=== PATIENT | male | born 1960 | race Hispanic/Latino ===

== ENCOUNTER 2018-05-08 12:02 | Observation (INO) | payer MEDICAID ==
--- NOTE | 2018-05-08 13:30 | C.PDOC ---
History Of Present Illness 58 y/o male with a PMHx of peripheral vascular disease (PAD), now presents complaining of pain to the left leg for the past 3-4 weeks. He reports pain is progressively worse. Pain is now rated 8/10, and described as sharp. He denies any rash, fever, recent travel, leg swelling, or other associated symptoms. Patient reports hx of prior surgery on the left leg but cannot recall specifics. Time Seen by Provider: 05/08/18 12:24 Chief Complaint (Nursing): Lower Extremity Problem/Injury History Per: Patient History/Exam Limitations: no limitations Onset/Duration Of Symptoms: Days Current Symptoms Are (Timing): Still Present Severity: Severe Pain Scale Rating Of: 8 Past Medical History Reviewed: Historical Data, Nursing Documentation, Vital Signs Vital Signs: Last Vital Signs Temp 98 F 05/08/18 12:19 Pulse 86 05/08/18 12:19 Resp 16 05/08/18 12:19 BP 124/81 05/08/18 12:19 Pulse Ox 98 05/08/18 12:19 - Medical History PMH: COPD, HTN Other PMH: Peripheral Arterial Disease Other Surgeries: Left leg vascular surgery Family History: States: No Known Family Hx - Social History Hx Alcohol Use: Yes Hx Substance Use: No - Immunization History Hx Tetanus Toxoid Vaccination: No Hx Influenza Vaccination: No Hx Pneumococcal Vaccination: No Review Of Systems Except As Marked, All Systems Reviewed And Found Negative. Constitutional: Negative for: Fever, Chills Cardiovascular: Negative for: Chest Pain Respiratory: Negative for: Shortness of Breath Musculoskeletal: Positive for: Leg Pain Skin: Negative for: Rash Neurological: Negative for: Weakness, Numbness Physical Exam - Physical Exam Appears: Non-toxic, No Acute Distress Skin: Warm, Other (Chronic venous stasis changes to the lower extremities) Eye(s): bilateral: Normal Inspection Chest: Symmetrical Respiratory: No Accessory Muscle Use, Other (Normal inspiratory effort, Speaking in full sentences) Extremity: Normal ROM, No Deformity, No Swelling Pulses: Left Dorsalis Pedis: Decreased (1+), Right Dorsalis Pedis: Decreased (1+) Neurological/Psych: Oriented x3, Normal Motor, Normal Sensation ED Course And Treatment - Laboratory Results Result Diagrams: 05/08/18 16:51 05/08/18 16:51 O2 Sat by Pulse Oximetry: 98 (RA) Pulse Ox Interpretation: Normal Medical Decision Making Medical Decision Making: Impression: Severe left leg pain, hx of PAD/PVD Plan: - Arterial Doppler ordered - Patient given 324 mg PO Aspirin Of note patient also reports hx of alcohol abuse and states he needs Librium. Will give 50 mg PO Librium. Doppler shows right leg moderate YAKOV, 0.58 on the right, 1.08 on the left. No risk on the left. Paged surgical specialist, will evaluate patient in the ED. 16:35 residential real estate sales manager at bedside, evaluating patient, will speak to Dr. Lyons. 17:05 Discussed with surgical specialist, surgery wants a CTA and may take patient to t he OR tomorrow. Requests patient be admitted to medical service. 17:[address] Kelley, will admit to service. Disposition - Disposition Forms: [employer] (Uz[place]) - PA / PALLIATIVE CARE SPECIALIST / Resident Statement MD/DO has reviewed & agrees with the documentation as recorded. - Scribe Statement The provider has reviewed the documentation as recorded by the Patrick Bradford All medical record entries made by the Patrick were at my direction and personally dictated by me. I have reviewed the chart and agree that the record accurately reflects my personal performance of the history, physical exam, medical decision making, and the department course for this patient. I have also personally directed, reviewed, and agree with the discharge instructions and disposition.
--- NOTE | 2018-05-08 16:51 | CP.PCM.CON ---
History of Present Illness - History of Present Illness History of Present Illness: Vascular surgery consult for Dr. Lyons Patient is a 58 year old male with past medical history of CAD, triple vessel CABG, PAD, COPD and HTN who presented to the ED with pain in lower legs bilaterally worse on the left. Patient stated that he has had the pain for 24 hours. He reports sudden onset. he describes the pain as sharp and constant. Patient also reports history of angiogram years ago in [place] where they did some intervention. Patient admits to rest pain and pain is worse with movement. He denies any wounds or impaired healing. Denies fever, chills, SOB, chest pain, nausea, vomiting, diarrhea, constipation and dysuria. PMH: CAD, PAD, COPD and HTN PSH: CABG, Left lower extremity vascular surgery Allergies: Not known Meds: See med list FMH: Unknown SocHx: Admits to daily tobacco and alcohol use. denies illicit drug use. Patient is legally blind. Review of Systems - Review of Systems All systems: reviewed and no additional remarkable complaints except (see HPI) Past Patient History - Past Social History Smoking Status: Heavy Smoker > 10 Cigarettes Daily - CARDIAC Hx Hypertension: Yes - PULMONARY Hx Chronic Obstructive Pulmonary Disease (COPD): Yes - PSYCHIATRIC Hx Substance Use: No Meds Allergies/Adverse Reactions: Allergies Allergy/AdvReac Type Severity Reaction Status Date / Time No Known Allergies Allergy Verified 05/08/18 12:22 Physical Exam - Constitutional Appears: Well, Non-toxic, No Acute Distress - Head Exam Head Exam: ATRAUMATIC, NORMOCEPHALIC - Eye Exam Eye Exam: PERRL Additional comments: Patient has difficulty seeing out of right eye and is unable to see out of his left eye. - ENT Exam ENT Exam: Mucous Membranes Moist - Respiratory Exam Respiratory Exam: NORMAL BREATHING PATTERN. absent: Accessory Muscle Use, Respiratory Distress - Cardiovascular Exam Cardiovascular Exam: REGULAR RHYTHM, +S1, +S2 - GI/Abdominal Exam GI & Abdominal Exam: Normal Bowel Sounds, Soft. absent: Distended, Guarding, Rebound, Rigid, Tenderness - Extremities Exam Additional comments: doppler signals present in DP/AT/PT/POP bilaterally TTP in bilateral feet delayed cap refill in bilateral feet - Back Exam Back exam: absent: CVA tenderness (L), CVA tenderness (R) - Neurological Exam Neurological exam: Alert, Oriented x3 - Psychiatric Exam Psychiatric exam: Normal Affect, Normal Mood - Skin Skin Exam: Intact Additional comments: bilaterally feet with redness, no skin breakdown Results - Vital Signs Recent Vital Signs: Last Vital Signs Temp 98 F 05/08/18 12:19 Pulse 86 05/08/18 12:19 Resp 16 05/08/18 12:19 BP 124/81 05/08/18 12:19 Pulse Ox 98 05/08/18 16:43 - Labs Result Diagrams: 05/08/18 16:51 05/08/18 16:51 Assessment & Plan - Assessment and Plan (Free Text) Assessment: 58 year old with past medical history of CAD, PAD, COPD and HTN who presented to the ED with pain in lower legs bilaterally Plan: -[place] 0.5 in RLE, 1.04 in LLE -f/u CTA -f/u EKG -Discussed with Dr. Eloy Frederick PGY2 - Date & Time Date: 05/08/18 Time: 16:45
[2018-05-08 16:57] LABS: BASO # 0.1 K/uL (0.0-0.2); BASO % 0.8 % (0.0-2.0); EOS # 0.3 K/uL (0.0-0.7); EOS % 4.1 % (0.0-4.0); HEMOGLOBIN 16.5 g/dL (12.0-18.0); LYMPH # 1.8 K/uL (1.0-4.3); LYMPH % 23.7 % (20.0-40.0); MEAN CELL VOLUME 93.4 fL (80.0-94.0); MEAN CORPUSCULAR HEMOGLOBIN 30.6 pg (27.0-31.0); MEAN CORPUSCULAR HGB CONC 32.8 g/dL (33.0-37.0); MEAN PLATELET VOLUME 7.7 fL (7.2-11.7); MONO % 13.5 % (0.0-10.0); NEUT # 4.4 K/uL (1.8-7.0); NEUT % 57.9 % (50.0-75.0); RBC 5.38 Mil/uL (4.40-5.90); RED CELL DISTRIBUTION WIDTH 13.2 % (11.5-14.5); WHITE BLOOD COUNT 7.7 K/uL (4.8-10.8)
[2018-05-08 17:07] LABS: ALB/GLOB RATIO 1.1 (1.0-2.1); ALBUMIN 4.7 g/dL (3.5-5.0); ALT/SGPT 18 U/L (21-72); AST/SGOT 28 U/L (17-59); BLOOD UREA NITROGEN 13 mg/dL (9-20); GFR NON-AFRICAN AMERICAN > 60
[2018-05-08 17:09] LABS: INR 1.1; PROTHROMBIN TIME 12.5 SECONDS (9.7-12.2)
[2018-05-08 20:29] VITALS: RESP 20
[2018-05-08] MEDS: Folic Acid 1 MG, Thiamine 100 MG, Multivitamin (MVI) 10 ML in Dextrose 5% In Water 1,00... IV SCH (21:58)
[2018-05-09] MEDS ORDERED: Iodixanol 320 mg/ml 150 ml Bottle IV ONE (07:12)
--- NOTE | 2018-05-09 07:33 | VASCLAB ---
Date of service: 05/08/2018 STUDY DESCRIPTION: Lower Extremity Arterial Exam (PVR). HISTORY: hx of PAD, severe pain to Lt lower leg PRIORS: None. TECHNIQUE: Pulse volume recording waveforms and segmental pressures of bilateral lower extremities at multiple levels were obtained. Ankle Brachial Indices (ABIs) were calculated. Report prepared by LANCE Davis, RVT RIGHT LOWER EXTREMITY: * Brachial artery: Pressure - 112 mmHg. * High thigh: Pressure - mmHg: Ratio - : PVR waveform - Pulsatile * Low thigh: Pressure - mmHg: Ratio - PVR waveform: Pulsatile * Calf: Pressure - 61 mmHg: Ratio - 0.54 PVR waveform: Pulsatile * Posterior tibial Artery: Pressure - 64 mmHg: Ratio - 0.57 PVR waveform: Pulsatile * Dorsalis pedis Artery: Pressure - 65 mmHg: Ratio - 0.58 PVR waveform: Pulsatile * Great toe: Pressure - mmHg: Ratio - PVR waveform: Ankle brachial index (JACKIE): 0.58 LEFT LOWER EXTREMITY: * Brachial artery: Pressure - 111 mmHg. * High thigh: Pressure - mmHg: Ratio - : PVR waveform - Pulsatile * Low thigh: Pressure - mmHg: Ratio - PVR waveform: Pulsatile * Calf: Pressure - 136 mmHg: Ratio - 1.21 PVR waveform: Pulsatile * Posterior tibial Artery: Pressure - 116 mmHg: Ratio - 1.04 PVR waveform: Pulsatile * Dorsalis pedis Artery: Pressure - mmHg: Ratio - PVR waveform: Pulsatile * Great toe: Pressure - mmHg: Ratio - PVR waveform: Ankle brachial index (JACKIE): 1.08 OTHER FINDINGS: Right: Left: IMPRESSION: Right: This exam reveals moderately decreased perfusion of the right lower extremity, noted at the superficial femoral, popliteal, tibial and distal small artery levels. Left: There was no evidence of hemodynamically significant arterial insufficiency in the left lower extremity. However, high thigh pulse volume recording waveform is suggestive of iliac artery level disease.
--- NOTE | 2018-05-09 07:46 | CP.PCM.PN ---
Subjective - Date & Time of Evaluation Date of Evaluation: 05/09/18 Time of Evaluation: 07:43 - Subjective Subjective: Vascular Surgery Progress Note for Dr. Lyons Patient seen and examined at bedside. He states that his pain in his lower legs has improved since yesterday. He states he has a history of smoking 2ppd for 42 years and drinks 12 24 oz of beer daily. Objective - Vital Signs/Intake and Output Vital Signs (last 24 hours): Temp Pulse Resp BP Pulse Ox 98.7 F 81 20 107/67 95 05/09/18 00:00 05/09/18 00:00 05/09/18 00:00 05/09/18 00:00 05/09/18 00:00 Intake and Output: 05/09/18 05/09/18 06:59 18:59 Intake Total 420 Balance 420 - Medications Medications: Current Medications Acetaminophen (Tylenol 325mg Tab) 650 mg PO Q6 PRN PRN Reason: pain Last Admin: 05/09/18 07:06 Dose: 650 mg Aspirin (Ecotrin) 81 mg PO DAILY [facility] Chlordiazepoxide (Librium) 25 mg PO Q8 PRN PRN Reason: Anxiety Last Admin: 05/09/18 07:07 Dose: 25 mg Folic Acid 1 mg/ Thiamine HCl 100 mg/ Multivitamins/Vitamin C 10 ml/ Dextrose 1,011.2 mls @ 60 mls/hr IV Q24H [facility] Last Admin: 05/08/18 21:58 Dose: 60 mls/hr Nicotine (Nicoderm Cq) 1 patch TD DAILY [facility] Last Admin: 05/08/18 21:58 Dose: 1 patch - Labs Labs: 05/08/18 16:51 05/08/18 16:51 PT 12.5 SECONDS (9.7-12.2) H 05/08/18 16:51 INR 1.1 05/08/18 16:51 APTT 38 SECONDS (21-34) H 05/08/18 16:51 - Constitutional Appears: Non-toxic, No Acute Distress - Head Exam Head Exam: ATRAUMATIC, NORMOCEPHALIC - Eye Exam Additional comments: Decreased vision of his right eye, no vision in left eye - ENT Exam ENT Exam: Mucous Membranes Moist - Respiratory Exam Respiratory Exam: NORMAL BREATHING PATTERN - Cardiovascular Exam Cardiovascular Exam: REGULAR RHYTHM, +S1, +S2 - GI/Abdominal Exam GI & Abdominal Exam: Soft, Normal Bowel Sounds - Extremities Exam Additional comments: Delayed capillary refill in feet bilaterally Decreased redness of feet bilaterally, but mildly tender - Neurological Exam Neurological Exam: Alert, Awake, Oriented x3 Assessment and Plan - Assessment and Plan (Free Text) Assessment: 58 year old with past medical history of CAD, PAD, COPD and HTN who presented to the ED with pain in lower legs bilaterally. Plan: Follow up CT angio Case discussed with Dr. Eloy Coronel, PGY1
--- NOTE | 2018-05-09 08:35 | CP.PCM.PN ---
Subjective - Date & Time of Evaluation Date of Evaluation: 05/09/18 Time of Evaluation: 08:34 - Subjective Subjective: cta, pvr reviewed and patient examined says complaint is of left leg sewlling no complaint on right( with sfa occlusion) left leg looks patent no immediate plans for any intervention Objective - Vital Signs/Intake and Output Vital Signs (last 24 hours): Temp Pulse Resp BP Pulse Ox 98 F 68 20 132/86 96 05/09/18 07:54 05/09/18 07:54 05/09/18 07:54 05/09/18 07:54 05/09/18 07:54 Intake and Output: 05/09/18 05/09/18 06:59 18:59 Intake Total 420 Balance 420 - Medications Medications: Current Medications Acetaminophen (Tylenol 325mg Tab) 650 mg PO Q6 PRN PRN Reason: pain Last Admin: 05/09/18 07:06 Dose: 650 mg Aspirin (Ecotrin) 81 mg PO DAILY [facility] Chlordiazepoxide (Librium) 25 mg PO Q8 PRN PRN Reason: Anxiety Last Admin: 05/09/18 07:07 Dose: 25 mg Folic Acid 1 mg/ Thiamine HCl 100 mg/ Multivitamins/Vitamin C 10 ml/ Dextrose 1,011.2 mls @ 60 mls/hr IV Q24H [facility] Last Admin: 05/08/18 21:58 Dose: 60 mls/hr Nicotine (Nicoderm Cq) 1 patch TD DAILY [facility] Last Admin: 05/08/18 21:58 Dose: 1 patch - Labs Labs: 05/08/18 16:51 05/08/18 16:51 PT 12.5 SECONDS (9.7-12.2) H 05/08/18 16:51 INR 1.1 05/08/18 16:51 APTT 38 SECONDS (21-34) H 05/08/18 16:51
--- NOTE | 2018-05-09 10:01 | PCM.PSYCH ---
Initial Psychiatric Evaluation - Initial Psychiatric Evaluation Type of Admission: Voluntary Legal Status: Capacity History of Present Illness and Precipitating Events: This is a 58 year old male who is with a daughter (29), lives alone in [place], and is unemployed on social security. He presented to the hospital for leg pain and swelling secondary to peripheral vascular disease. Psych was consulted for alcohol abuse. Patient confirms worsening leg pain and swelling over the last few days. Patient states he drinks 10-12 24oz. beers per day for the last 42 years. Patient confirms last drink was yesterday morning. Patient scored on CAGE, denying feeling annoyed about people criticizing is alcohol consumption. Patient confirms withdrawal symptoms of tremors when he is unable to find alcohol. Patient confirms smoking 2 packs per day for the last 42 years. Patient denies other drug use. Patient reports depressed mood, poor sleep and anxiety. However he denies suicidal ideations, visual or auditory hallucinations, or paranoia. Patient states he has completed detox most recently in November 2017 at [facility]. He relapsed within hours of discharge. Patient denies history of psychiatric hospitalizations. He is currently feeling okay and confirms feeling depressed about half of the time. PsychHx: anxiety MedHx: vascular disease, triple bypass surgery, lumbar spinal fusion, concussion Allergies: denies Meds: denies Current Medications: Active Medications Generic Name Dose Route Start Last Admin Trade Name Freq PRN Reason Stop Dose Admin Acetaminophen 650 mg 05/08/18 20:09 05/09/18 07:06 Tylenol 325mg Tab PO 650 mg Q6 PRN Administration pain Aspirin 81 mg 05/09/18 10:00 05/09/18 09:36 Ecotrin PO 81 mg DAILY [facility] Administration Chlordiazepoxide 25 mg 05/08/18 20:05 05/09/18 07:07 Librium PO 25 mg Q8 PRN Administration Anxiety Heparin Sodium (Porcine) 5,000 units 05/09/18 10:00 05/09/18 09:37 Heparin SC 5,000 units Q12 [facility] Administration Folic Acid 1 mg/ Thiamine HCl 1,011.2 mls @ 60 mls/hr 05/08/18 20:15 05/08/18 21:58 100 mg/ Multivitamins/Vitamin IV 60 mls/hr C 10 ml/ Dextrose Q24H [facility] Administration Nicotine 1 patch 05/08/18 20:15 05/09/18 09:35 Nicoderm Cq TD 1 patch DAILY [facility] Administration Past Psychiatric History - Past Psychiatric History Previous Treatment History: None Pertinent Medical Hx (Current Medical&Sleep Prob, Allergies): Allergies Allergy/AdvReac Type Severity Reaction Status Date / Time No Known Allergies Allergy Verified 05/08/18 12:22 No Known Home Med 05/08/18 Review of Systems - Review of Systems All systems: reviewed and no additional remarkable complaints except - Psychiatric Psychiatric: Anxiety, Irritability, Mood Swings Mental Status Examination - Personal Presentation Personal Presentation: Looks stated age - Affect Affect: Constricted - Motor Activity Motor Activity: Calm - Reliability in Providing Information Reliability in Providing Information: Fair - Speech Speech: Organized - Mood Mood: Neutral - Formal Thought Process Formal Thought Process: No Impairment - Obsessions/Compulsions Obsessions: No Compulsions: No - Cognitive Functions Orientation: Person, Place, Situation, Time Sensorium: Alert Attention/Concentration: Attentive Abstract Thinking: [place] Estimate of Intelligence: Below average Judgement: Imparied, as evidence by: Poor judgement, Imparied, as evidence by: Lack of insight into illness - Risk Risk: Withdrawal, Diminished functioning - Limitations Limitations: Living alone DSM 5 DX - DSM 5 DSM 5 Diagnosis: Depressive disorder Alcohol use disorder severe Alcohol withdrawal - Recommended/Plan of Treatment Treatment Recommendations and Plan of Treatment: Depressive disorder Alcohol use disorder severe Alcohol withdrawal Psycho education Librium as needed Patient psychiatrically stable and cleared for discharge
--- NOTE | 2018-05-09 10:31 | CT ---
Date of service 05/09/2018 PROCEDURE: CT Angiography Abdomen, Pelvis and Lower Extremity with Contrast HISTORY: PAD COMPARISON: None available. TECHNIQUE: Technique: CT angiography of the abdomen, pelvis and bilateral lower extremities performed in the arterial phase of enhancement. Coronal and sagittal reformats, and well as rotating MIP images of the vessels generated at the workstation. Intravenous contrast dose: 150 milliliters Visipaque 320 Radiation dose: Total exam DLP = 1445.51 mGy-cm. This CT exam was performed using one or more of the following dose reduction techniques: Automated exposure control, adjustment of the mA and/or kV according to patient size, and/or use of iterative reconstruction technique. FINDINGS: CT ANGIOGRAPHY: ABDOMINAL AORTA:: The abdominal aorta is unremarkable. MAJOR AORTIC BRANCHES: Celiac [place]: Unremarkable. Superior mesenteric artery: Unremarkable. Inferior mesenteric artery: Unremarkable. Renal arteries: Unremarkable. PELVIC ARTERIES: Right Common Iliac: Moderate calcific plaque of the common iliac artery with no significant stenosis. Right External Iliac: Unremarkable. Right Internal Iliac: Unremarkable. Left Common Iliac: Moderate calcific plaque of the left common iliac artery with no significant stenosis. Left External Iliac: Unremarkable. Left Internal Iliac: Unremarkable. RIGHT LOWER EXTREMITY ARTERIES: Right Common Femoral: Unremarkable. Right Superficial Femoral: Occlusion of the SFA beginning at the origin with distal SFA reconstitution. Right Profunda Femoris: Unremarkable Right Popliteal:Moderate stenosis Right Anterior Tibial: Moderately stenotic proximally then occludes distally. Right Tibioperoneal Trunk: Severe calcific plaque but patent. Right Posterior Tibial: Moderate calcific plaque in the proximal segment but otherwise patent. Right Peroneal: Unremarkable. Right dorsalis pedis : Unremarkable. LEFT LOWER EXTREMITY ARTERIES: Left Common Femoral: Unremarkable. Left Superficial Femoral: Patent SFA stent. Left Profunda Femoris: Occlusion of the profunda femoral artery. Left Popliteal: Unremarkable. Left Anterior Tibial: Unremarkable. Left Tibioperoneal Trunk: Occluded.. Left Posterior Tibial: Severely stenotic/occluded with areas of flow seen in the mid and distal segments. Left Peroneal: Reconstitutes via collaterals in the proximal segment. There either underfilling of moderate stenosis in the distal peroneal artery. Left Dorsalis pedis: Unremarkable. NON-ANGIOGRAPHIC ASPECT OF THE EXAM: LOWER THORAX: 4 millimeter nodule is seen within the peripheral left lower lobe. LIVER: Unremarkable. No gross lesion or ductal dilatation. GALLBLADDER AND BILE DUCTS: Unremarkable. PANCREAS: Unremarkable. No gross lesion or ductal dilatation. SPLEEN: Unremarkable. ADRENALS: Unremarkable. No mass. KIDNEYS AND URETERS: Unremarkable. No hydronephrosis. No solid mass. STOMACH AND BOWEL: Unremarkable. No obstruction. No gross mural thickening. APPENDIX: Normal appendix. PERITONEUM: Unremarkable. No free fluid. No teresa 150 milliliters Visipaque 320 e air. LYMPH NODES: Unremarkable. No enlarged lymph nodes. BLADDER: Unremarkable. REPRODUCTIVE: Unremarkable. BONES: No acute fracture. OTHER FINDINGS: None. IMPRESSION: CT ANGIOGRAM ABDOMEN/PELVIS: 1. The abdominal aorta and branches are unremarkable. 2. Moderate calcific plaque in both right and left common iliac arteries which are otherwise unremarkable. External iliac arteries are normal. RIGHT LOWER EXTREMITY CT ANGIOGRAM: 1. The common femoral artery and profunda femoral artery normal. 2. There is occlusion of the SFA beginning at the origin with distal SFA reconstitution. 3. Moderate popliteal artery stenosis. 4. Runoff shows the severely stenotic tibioperoneal artery which is otherwise patent. The peroneal artery is patent. There is moderate calcific plaque in the proximal posterior tibial artery which is otherwise unremarkable. The anterior tibial artery is moderately stenotic in the proximal segment and is believed to be occluded in distal segment LEFT LOWER EXTREMITY CT ANGIOGRAM: 1. Common femoral arteries unremarkable. 2. There is no flow in the profunda femoral artery. 3. SFA stent is patent. 4. Popliteal artery is unremarkable. 5. Runoff shows a patent anterior tibial artery. The tibioperoneal artery is occluded. The peroneal artery reconstitutes in the proximal segment that is believed to be severely stenotic or under filled in distal segment. Posterior tibial artery is severely stenotic and occluded with short segment areas of flow in the mid and distal segments. NONVASCULAR FINDINGS: 4 millimeter nodule peripheral left lower lobe. Six-month follow-up CT of chest recommended.
--- NOTE | 2018-05-09 12:45 | CARD ---
APPROVED REPORT Date of service: 05/08/2018 EKG Measurement Heart [id number] <Conclusion> Normal sinus rhythm Nonspecific ST abnormality Abnormal ECG
[2018-05-09] MEDS: Folic Acid 1 MG, Thiamine 100 MG, Multivitamin (MVI) 10 ML in Dextrose 5% In Water 1,00... IV SCH (20:15)
--- NOTE | 2018-05-09 22:31 | HP ---
The patient was seen and examined at bedside on 05/09/2018. CHIEF COMPLAINT: Leg pain. HISTORY OF PRESENT ILLNESS: Mr. Jagdish Hauser is a 58-year-old male with past medical history of peripheral vascular disease, PAD. Came with complaining of pain in the left leg for the past three to four weeks. He reports pain is progressively worse. At the time of admission, it was 8/10 and described as sharp. He denies any rash or fever. No recent travel. No swelling of the legs. No hematuria or hematochezia. No headache or dizziness. The patient has a prior history of surgery in the left leg, but cannot recall specific date. The patient has a surgery done in [facility] at some other state also. Now, he is with his girlfriend in [place]. That is why, he came to [facility]. PAST MEDICAL HISTORY: COPD, hypertension, peripheral arterial disease, left leg vascular surgery. FAMILY HISTORY: Father and mother, noncontributory. SOCIAL HISTORY: Alcohol, yes. Substance abuse, no. REVIEW OF SYSTEMS: The patient is seen and examined at the bedside. Complaining about leg pain. No fever. No o chills. No hematuria or hematochezia. No headache or dizziness. No chest pain. No palpitation. No shortness of breath. No rash. No weakness. PHYSICAL EXAMINATION: VITAL SIGNS: Temperature 98, pulse 86, respiratory rate 16, blood pressure 124/81, pulse oximetry 98%. HEENT: Head is normocephalic and atraumatic. Eyes, PERRLA. Extraocular muscles intact. Conjunctivae clear. Nose patent. Mucous membranes moist. NECK: Supple. No carotid bruits. No JVD or thyromegaly. CHEST: Bilaterally symmetrical. HEART: S1 and S2 positive. LUNGS: Clear to auscultation. ABDOMEN: Soft. Bowel sounds present. No organomegaly. EXTREMITIES: No edema. No cyanosis. NEUROLOGIC: The patient is awake, alert. Moving all four extremities. No focal deficits. LABORATORY DATA: White blood cells 7.7, hemoglobin 16.5, hematocrit 50.2, platelets 202. Sodium 137, potassium 4.5, BUN 30, creatinine 1, glucose 77. ASSESSMENT AND PLAN: Mr. Jagdish Hauser is a 58-year-old male with a history of hypertension, chronic obstructive pulmonary disease, peripheral arterial disease, left leg vascular surgery. Came with leg pain. Went for abdominal angiography by Dr. Joselito Eaton. The patient has a 4-mm nodule peripheral left lower lobe. Six-month followup CT of the chest is recommended. Common femoral artery is unremarkable. There is no flow in the profunda femoral artery. Assessed his stent, it is patent. Popliteal artery is unremarkable. Run off shows patent arterial tibial artery. The tibial peroneal artery is occluded. The peroneal artery reconstitutes in the proximal segment that is believed to be severely stenotic or underfilled with distal segment. Posterior tibial artery is severely stenotic and occluded with short segment area of the flow in the mid and distal segments. Appreciated Dr. Joselito Eaton's input. Seen by Dr. Radhika Johnson and Dr. Dennis Lyons Jr. Discussion done with Dr. Lyons. No immediate plan for intervention as per Dr. Lyons. Repeat labs. We will follow up. Irish Kelley MD LAURITA
--- NOTE | 2018-05-10 12:18 | CP.PCM.CON ---
History of Present Illness - History of Present Illness History of Present Illness: Podiatry Consult - Dr. Way 58 y/o male with PMHx of PVD, COPD, HTN seen at bedside this morning for painful elongated toenails and cramping pain in the left leg. Pt states the legs have been hurting for a few weeks and he has a history of poor blood flow to the leg. ALso states the nails have been hurting him. Denies tingling, numbness or burning in the legs. Denies F/C/N/V/CP/SOB. Denies any history of recent trauma to the lower extremities PSHx: left leg stents ALL: NKDA SocHx: social EtOH, "social" cigarette use; denies illicit drug use Review of Systems - Review of Systems All systems: reviewed and no additional remarkable complaints except (per HPI) Past Patient History - Past Social History Smoking Status: Heavy Smoker > 10 Cigarettes Daily - CARDIAC Hx Hypertension: Yes - PULMONARY Hx Chronic Obstructive Pulmonary Disease (COPD): Yes - PSYCHIATRIC Hx Substance Use: No Meds Home Medications: Home Medication List Medication Instructions Recorded Confirmed Type Aspirin [Ecotrin] 81 mg PO DAILY 30 Days tabec 05/10/18 Rx Allergies/Adverse Reactions: Allergies Allergy/AdvReac Type Severity Reaction Status Date / Time No Known Allergies Allergy Verified 05/08/18 12:22 - Medications Medications: Current Medications Acetaminophen (Tylenol 325mg Tab) 650 mg PO Q6 PRN PRN Reason: pain Last Admin: 05/10/18 03:14 Dose: 650 mg Aspirin (Ecotrin) 81 mg PO DAILY [facility] Last Admin: 05/10/18 09:24 Dose: 81 mg Chlordiazepoxide (Librium) 25 mg PO Q8 PRN PRN Reason: Anxiety Last Admin: 05/09/18 21:44 Dose: 25 mg Heparin Sodium (Porcine) (Heparin) 5,000 units SC Q12 [facility] Last Admin: 05/10/18 09:25 Dose: 5,000 units Folic Acid 1 mg/ Thiamine HCl 100 mg/ Multivitamins/Vitamin C 10 ml/ Dextrose 1,011.2 mls @ 60 mls/hr IV Q24H [facility] Last Admin: 05/09/18 20:15 Dose: 60 mls/hr Nicotine (Nicoderm Cq) 1 patch TD DAILY [facility] Last Admin: 05/10/18 09:23 Dose: 1 patch Physical Exam - Constitutional Appears: Well, Non-toxic, No Acute Distress - Extremities Exam Additional comments: Lower extremity focused exam: Vasc: DP/PT pulses faintly palpable 1/4. Temperature gradient cool to cool on L, warm to cool on R. CFT < 3 sec to all digits. NO pedal edema noted Derm: thickened dystrophic elongated toenails x10. No open wounds, no erythema, no ecchymosis, no clinical signs of infection Neuro: protective sensation grossly intact Ortho: tenderness to palpation of toenails x 10. Tenderness upon palpation of left lower extremity distal to knee with application of pressure - Neurological Exam Neurological exam: Alert, Oriented x3 - Psychiatric Exam Psychiatric exam: Normal Affect, Normal Mood Results - Vital Signs Recent Vital Signs: Last Vital Signs Temp 97.8 F 05/10/18 07:00 Pulse 75 05/10/18 07:00 Resp 20 05/10/18 07:00 BP 113/75 05/10/18 07:00 Pulse Ox 95 05/10/18 07:00 - Labs Result Diagrams: 05/08/18 16:51 05/08/18 16:51 Assessment & Plan - Assessment and Plan (Free Text) Assessment: 58 y/o male with thickened painful elongated toenails x 10 and painful left leg cramping secondary to PAD Plan Patient seen and evaluated at bedside Discussed with Dr. Way PLan for debridement of toenails tomorrow with sterile nippers Vascular on board for left leg PAD Dr. Lyons Will debride nails and sign off Thank you for consult
--- NOTE | 2018-05-10 15:57 | CP.PCM.PN ---
Subjective - Date & Time of Evaluation Date of Evaluation: 05/10/18 Time of Evaluation: 15:56 Objective - Vital Signs/Intake and Output Vital Signs (last 24 hours): Temp Pulse Resp BP Pulse Ox 97.8 F 75 20 113/75 95 05/10/18 07:00 05/10/18 07:00 05/10/18 07:00 05/10/18 07:00 05/10/18 07:00 Intake and Output: 05/10/18 05/10/18 06:59 18:59 Intake Total 780 Balance 780 - Medications Medications: Current Medications Acetaminophen (Tylenol 325mg Tab) 650 mg PO Q6 PRN PRN Reason: pain Last Admin: 05/10/18 03:14 Dose: 650 mg Aspirin (Ecotrin) 81 mg PO DAILY [facility] Last Admin: 05/10/18 09:24 Dose: 81 mg Chlordiazepoxide (Librium) 25 mg PO Q8 PRN PRN Reason: Anxiety Last Admin: 05/09/18 21:44 Dose: 25 mg Heparin Sodium (Porcine) (Heparin) 5,000 units SC Q12 [facility] Last Admin: 05/10/18 09:25 Dose: 5,000 units Folic Acid 1 mg/ Thiamine HCl 100 mg/ Multivitamins/Vitamin C 10 ml/ Dextrose 1,011.2 mls @ 60 mls/hr IV Q24H [facility] Last Admin: 05/09/18 20:15 Dose: 60 mls/hr Nicotine (Nicoderm Cq) 1 patch TD DAILY [facility] Last Admin: 05/10/18 09:23 Dose: 1 patch - Labs Labs: 05/08/18 16:51 05/08/18 16:51 PT 12.5 SECONDS (9.7-12.2) H 05/08/18 16:51 INR 1.1 05/08/18 16:51 APTT 38 SECONDS (21-34) H 05/08/18 16:51 Assessment and Plan - Assessment and Plan (Free Text) Assessment: FOLLOW UP WITH DR TOM IN OFFICE ------CALL FOR APPOINTMENT FOLLOW UP WITH DR BERNAL IN HIS OFFICE-----CALL FOR APPOINTMENT CONTINUE HOME MEDICATION NEW PRESCRIPTION GIVEN ASPIRIN 81 MG PO DAILY [facility]IV[facility] TOLERATED CALL DR PAINTER OR GO TO THE EMERGENCY ROOM IF SYMPTOM RETURN OR WORSENING
[2018-05-10 16:56] VITALS: BP 142/89; PULSE 89; TEMP 97.4; O2SAT 97
[2018-05-10] MEDS ORDERED: Influenza Vaccine 60 mcg/0.5 mL SYR (4YR UP) IM ONE (17:04)
[2018-05-10] MEDS ORDERED: Pneumococcal 23-Valent Vaccine IM ONE (17:04)
[2018-05-10] MEDS: Folic Acid 1 MG, Thiamine 100 MG, Multivitamin (MVI) 10 ML in Dextrose 5% In Water 1,00... IV SCH (19:35)
== END 2018-05-10 21:36 | disposition home or self-care (01) ==
LOC: C.ER 12:02 → C.9E 17:13 → C.3T 19:14
PROVIDERS: ADMIT Internal Medicine; ATTEND Internal Medicine
DX: I73.9 Peripheral vascular disease, unspecified (principal); L60.8 Other nail disorders; F10.239 Alcohol dependence with withdrawal, unspecified; I25.10 Atherosclerotic heart disease of native coronary artery without angina pectoris; I10 Essential (primary) hypertension; F32.9 Major depressive disorder, single episode, unspecified; F41.9 Anxiety disorder, unspecified; J44.9 Chronic obstructive pulmonary disease, unspecified; F17.210 Nicotine dependence, cigarettes, uncomplicated; H54.8 Legal blindness, as defined in USA; Z95.1 Presence of aortocoronary bypass graft; Z98.1 Arthrodesis status; Z79.82 Long term (current) use of aspirin
CPT/HCPCS: 75635; 80053; 85025; 85610; 85730; 93005; 93923; 97116; 97162; 99284; G0378; G8978; G8979; J1644; J3411; J7070; Q9967